=== PATIENT | female | born 1975 | race Caucasian/White ===

== ENCOUNTER 2017-02-20 00:40 | Emergency (ER) | payer MEDICAID | END 2017-02-20 02:15 | disposition home or self-care (01) | LOC: D.ER 00:40 | DX: S60.311A Abrasion of right thumb, initial encounter (principal); S61.411A Laceration without foreign body of right hand, initial encounter; W25.XXXA Contact with sharp glass, initial encounter; Y93.89 Activity, other specified; Y92.89 Other specified places as the place of occurrence of the external cause; E03.9 Hypothyroidism, unspecified ==

== ENCOUNTER 2018-09-10 19:32 | Emergency (ER) | payer MEDICAID ==
[~2018-09-10] VITALS: Ht 170.2 cm; Wt 70.5 kg
[2018-09-10 19:37] VITALS: Ht 170.2 cm; Wt 70.5 kg
[2018-09-10] MEDS ORDERED: ADIPEX-P37.5 MG (19:38)
[2018-09-10] MEDS ORDERED: BUPROPION HCL100 M1 (19:38)
[2018-09-10] MEDS ORDERED: ARMOUR THYROID90 MG (19:38)
[2018-09-10] MEDS ORDERED: TORADOL10 MG PO (21:23)
[2018-09-10 21:35] VITALS: BP 124/79
== END 2018-09-10 21:36 | disposition home or self-care (01) ==
LOC: D.ER 19:32
DX: S81.811A Laceration without foreign body, right lower leg, initial encounter (principal); W26.9XXA Contact with unspecified sharp object(s), initial encounter; Y93.89 Activity, other specified; Y92.89 Other specified places as the place of occurrence of the external cause

== ENCOUNTER → 2020-11-13 10:51 | Outpatient (CLI) | payer MEDICAID ==
[2018-09-10 19:37] VITALS: BMI 24.3
[~2020-11-13 10:51] MED LIST: ADIPEX-P37.5 MG; ARMOUR THYROID90 MG; BUPROPION HCL100 M1; TORADOL10 MG PO
== END | disposition home or self-care (01) ==
LOC: D.CT 10:51
PROVIDERS: ATTEND Obstetrics & Gynecology
DX: Z18.9 Retained foreign body fragments, unspecified material (principal)